=== PATIENT | male | born 1960 | race Caucasian/White ===

== ENCOUNTER 2021-04-17 19:02 | Emergency (ER) | payer OTHER ==
--- NOTE | 2021-04-17 19:48 | EDM.PDOC ---
ED HPI GENERAL MEDICAL PROBLEM - General Chief Complaint: Laceration Stated Complaint: finger laceration Time Seen by Provider: 04/17/21 19:15 Source of Information: Reports: Patient History Limitations: Reports: No Limitations - History of Present Illness INITIAL COMMENTS - FREE TEXT/NARRATIVE: Eric is a 60 yo male who presents to the ED with concerns of a cut to the left middle finger. States he changing batteries in his watch and using a knife to pry open the back. Slipped and cut the tip of his index finger. Tdap was in 2017. Admits to not being able to get the bleeding to stop. Left Pain Score (Numeric/FACES): 3 - Related Data Allergies Allergy/AdvReac Type Severity Reaction Status Date / Time No Known Allergies Allergy Verified 04/17/21 19:04 Home Meds: Home Meds . [No Known Home Meds] 04/17/21 [History] Past Medical History - Past Health History Medical/Surgical History: Denies Medical/Surgical History - Infectious Disease History Infectious Disease History: Reports: Chicken Pox Social & Family History - Family History Family Medical History: No Pertinent Family History - Tobacco Use Tobacco Use Status *Q: Never Tobacco User Second Hand Smoke Exposure: No - Caffeine Use Caffeine Use: Reports: Soda - Recreational Drug Use Recreational Drug Use: No ED ROS GENERAL - Review of Systems Review Of Systems: Comprehensive ROS is negative, except as noted in HPI. ED EXAM, SKIN/RASH Exam: See Below Exam Limited By: No Limitations General Appearance: Alert, No Apparent Distress Skin: Wound/Incision (1.5cm laceration to distal tip of the left middle finger. No nail involvement. ) ED SKIN PROCEDURES - Laceration/Wound Repair Left Distal Digit - 3rd (Middle) Appearance: Superficial, Clean Distal NVT: Neuro & Vascular Intact, No Tendon Injury Anesthetic Type: Local Local Anesthesia - Lidocaine (Xylocaine): 1% Plain Local Anesthetic Volume: 1cc Skin Prep: Chlorhexidine (Hibiciens), Sterile Drape Exploration/Debridement/Repair: Wound Explored, In a Bloodless Field, Explored to Base Closed with: Dermabond Lac/Wound length In cm: 2 Sterile Dressing Applied: Nurse Tetanus Status Addressed: Yes Complications: No Course - Vital Signs Last Recorded V/S: Last Vital Signs Temp 98.2 F 04/17/21 19:21 Pulse 90 04/17/21 19:21 Resp 17 04/17/21 19:21 BP 135/97 H 04/17/21 19:21 Pulse Ox 96 04/17/21 19:21 - Orders/Labs/Meds Meds: Medications Discontinued Medications Generic Name Dose Route Start Last Admin Trade Name Aracelis PRN Reason Stop Dose Admin Lidocaine HCl 5 ml 04/17/21 19:13 04/17/21 19:20 Lidocaine 1% 5 Ml Sdv INJECT 04/17/21 19:14 5 ml ONETIME ONE Administration Departure - Departure Time of Disposition: 19:48 Disposition: Home, Self-Care 01 Clinical Impression: Laceration of finger of left hand Qualifiers: Encounter type: initial encounter Finger: middle finger Damage to nail status: without damage Foreign body presence: without foreign body Qualified Code(s): S61.213A - Laceration without foreign body of left middle finger without damage to nail, initial encounter - Discharge Information Instructions: Nonsutured Laceration Care, Sutures, [place], or Adhesive Wound Closure, [id number] Referrals: PCP,None [Primary Care Provider] - Additional Instructions: 1) Keep finger clean and dry for initial 48 hours. 2) No soaking of finger 3) Watch for any signs of infection (increased redness, swelling, warmth, drainage, etc...). 4) May try Tylenol or ibuprofen for any discomfort. 5) Recommend following up with primary provider this week for blood pressure check. Sepsis Event Note (ED) - Evaluation Sepsis Screening Result: No Definite Risk - Focused Exam Vital Signs: Vital Signs Temp Pulse Resp BP Pulse Ox 04/17/21 19:21 98.2 F 90 17 135/97 H 96 - Problem List & Annotations (1) Laceration of finger of left hand SNOMED Code(s): 580735464, [id number] Code(s): S61.219A - LACERATION W/O FB OF UNSP FINGER W/O DAMAGE TO NAIL, INIT Status: Acute Current Visit: Yes Qualifiers: Encounter type: initial encounter Finger: middle finger Damage to nail status: without damage Foreign body presence: without foreign body Qualified Code(s): S61.213A - Laceration without foreign body of left middle finger without damage to nail, initial encounter - Assessment/Plan Plan: Wound was initially evaluated and discussed closure techniques. Pt initially requested sutures. After injecting lidocaine, wound was explored to base. Unable to close via sutures as would need to go thru nail bed to hold proper tension. Recommended Dermabond, which patient was in agreement. No complications with Dermabond. Nurses applied dressing. Tdap addressed and up to date. Will recommend following up with primary for blood pressure recheck.
== END 2021-04-17 20:00 | disposition home or self-care (01) ==
LOC: CC.ED 19:02
DX: S61.213A Laceration without foreign body of left middle finger without damage to nail, initial encounter (principal); W26.0XXA Contact with knife, initial encounter
CPT/HCPCS: 12001; 99282-25; 99283

== ENCOUNTER 2024-11-06 17:28 | Emergency (ER) | payer BC, OTHER ==
[2024-11-06] MEDS: cefTRIAXone 1 GM Vial IM ONE (17:50)
[2024-11-06] MEDS: Albuterol 6.7 GM Inhaler INH ONE (17:50)
[2024-11-06] MEDS: methylPREDNISolone Acetate 80 MG/ML SDV IM ONE (17:50)
== END 2024-11-06 18:30 | disposition home or self-care (01) ==
LOC: CC.ED 17:28
DX: J32.9 Chronic sinusitis, unspecified (principal); I10 Essential (primary) hypertension; E78.00 Pure hypercholesterolemia, unspecified; Z79.899 Other long term (current) drug therapy
CPT/HCPCS: 96372; 99283; A9270; J0696; J1010